=== PATIENT | male | born 1955 | race Caucasian/White ===

== ENCOUNTER 2017-09-05 10:17 | Emergency (ER) | payer OTHER ==
[2017-09-05 10:30] VITALS: PULSE 102; RESP 18
--- NOTE | 2017-09-05 10:30 | ED ---
General Adult HPI - General Chief complaint: Skin/Abscess/Foreign Body Stated complaint: swelling Time Seen by Provider: 09/05/17 10:24 Source: patient, RN notes reviewed, old records reviewed Mode of arrival: ambulatory Limitations: no limitations - History of Present Illness Initial comments: This is a 61-year-old male the ER today. The patient is today for evaluation regards to gluteal rectal abscess. Draining pus. Patient missed a fever diaphoresis not feeling well, patient does feel weak. He states symptoms happened and began basically last 2 days. Noticed it. Pain maybe a little bit longer than that, they did notice drainage and pus from the area yesterday. Patient presents today for evaluation regarding issue. Patient has no known history of diabetes - Related Data Home Medications Medication Instructions Recorded Confirmed Amoxic-Pot Clav 875-125Mg 1 tab PO Q12HR 09/05/17 09/05/17 [Augmentin 875-125] Aspirin 81 mg PO DAILY 09/05/17 09/05/17 [id number] [id number] 1 each PO Q6HR PRN 09/05/17 09/05/17 [Excedrin] Ibuprofen [Advil] 400 mg PO Q6HR PRN 09/05/17 09/05/17 Allergies Allergy/AdvReac Type Severity Reaction Status Date / Time No Known Allergies Allergy Unverified 09/05/17 10:33 Review of Systems ROS Statement: Those systems with pertinent positive or pertinent negative responses have been documented in the HPI. ROS Other: All systems not noted in ROS Statement are negative. Past Medical History Past Medical History: No Reported History History of Any Multi-Drug Resistant Organisms: None Reported Past Surgical History: No Surgical Hx Reported Past Psychological History: No Psychological Hx Reported Smoking Status: Current every day smoker Past Alcohol Use History: None Reported Past Drug Use History: None Reported General Exam Limitations: no limitations General appearance: alert, in no apparent distress Head exam: Present: atraumatic, normocephalic, normal inspection Eye exam: Present: normal appearance, PERRL, EOMI. Absent: scleral icterus, conjunctival injection, periorbital swelling ENT exam: Present: normal exam, mucous membranes moist Neck exam: Present: normal inspection. Absent: tenderness, meningismus, lymphadenopathy Respiratory exam: Present: normal lung sounds bilaterally. Absent: respiratory distress, wheezes, rales, rhonchi, stridor Cardiovascular Exam: Present: normal rhythm, tachycardia, normal heart sounds. Absent: systolic murmur, diastolic murmur, rubs, gallop, clicks GI/Abdominal exam: Present: soft, normal bowel sounds. Absent: distended, tenderness, guarding, rebound, rigid Rectal exam: Present: tenderness, other (crepitus, abscess-draining pus, ) Extremities exam: Present: normal inspection, full ROM, normal capillary refill. Absent: tenderness, pedal edema, joint swelling, calf tenderness Back exam: Present: normal inspection Neurological exam: Present: alert, oriented X3, CN II-XII intact Psychiatric exam: Present: normal affect, normal mood Skin exam: Present: warm, dry, intact, normal color. Absent: rash Course Vital Signs 09/05/17 10:19 Temperature 98.6 F Pulse Rate 102 H Respiratory 18 Rate Blood Pressure 108/43 O2 Sat by Pulse 99 Oximetry Medical Decision Making - Lab Data Result diagrams: 09/05/17 11:19 09/05/17 11:19 Lab Results 09/05/17 09/05/17 09/05/17 Range/Units 11:19 11:19 11:19 WBC 21.9 H (3.8-10.6) k/uL RBC 4.70 (4.30-5.90) m/uL Hgb 14.4 (13.0-17.5) gm/dL Hct 42.4 (39.0-53.0) % MCV 90.4 (80.0-100.0) fL MCH 30.6 (25.0-35.0) pg MCHC 33.9 (31.0-37.0) g/dL RDW 13.4 (11.5-15.5) % Plt Count 260 (150-450) k/uL Sodium 136 L (137-145) mmol/L Potassium 3.9 (3.5-5.1) mmol/L Chloride 105 (98-107) mmol/L Carbon Dioxide 19 L (22-30) mmol/L Anion Gap 12 mmol/L BUN 23 H (9-20) mg/dL Creatinine 1.11 (0.66-1.25) mg/dL Est GFR (CKD-EPI)AfAm 83 (>60 ml/min/1.73 sqM) Est GFR (CKD-EPI)NonAf 72 (>60 ml/min/1.73 sqM) Glucose 119 H (74-99) mg/dL Plasma Lactic Acid Russ (0.7-2.0) mmol/L Calcium 8.5 (8.4-10.2) mg/dL Phosphorus 3.7 (2.5-4.5) mg/dL Magnesium 1.9 (1.6-2.3) mg/dL Total Bilirubin 0.7 (0.2-1.3) mg/dL AST 27 (17-59) U/L ALT 57 (21-72) U/L Alkaline Phosphatase 77 (38-126) U/L Total Creatine Kinase 135 (55-170) U/L CK-MB (CK-2) 1.3 (0.0-2.4) ng/mL CK-MB (CK-2) Rel Index 1.0 Troponin I <0.012 (0.000-0.034) ng/mL Total Protein 5.4 L (6.3-8.2) g/dL Albumin 2.7 L (3.5-5.0) g/dL 09/05/17 Range/Units 11:19 WBC (3.8-10.6) k/uL RBC (4.30-5.90) m/uL Hgb (13.0-17.5) gm/dL Hct (39.0-53.0) % MCV (80.0-100.0) fL MCH (25.0-35.0) pg MCHC (31.0-37.0) g/dL RDW (11.5-15.5) % Plt Count (150-450) k/uL Sodium (137-145) mmol/L Potassium (3.5-5.1) mmol/L Chloride (98-107) mmol/L Carbon Dioxide (22-30) mmol/L Anion Gap mmol/L BUN (9-20) mg/dL Creatinine (0.66-1.25) mg/dL Est GFR (CKD-EPI)AfAm (>60 ml/min/1.73 sqM) Est GFR (CKD-EPI)NonAf (>60 ml/min/1.73 sqM) Glucose (74-99) mg/dL Plasma Lactic Acid Russ 2.0 (0.7-2.0) mmol/L Calcium (8.4-10.2) mg/dL Phosphorus (2.5-4.5) mg/dL Magnesium (1.6-2.3) mg/dL Total Bilirubin (0.2-1.3) mg/dL AST (17-59) U/L ALT (21-72) U/L Alkaline Phosphatase (38-126) U/L Total Creatine Kinase (55-170) U/L CK-MB (CK-2) (0.0-2.4) ng/mL CK-MB (CK-2) Rel Index Troponin I (0.000-0.034) ng/mL Total Protein (6.3-8.2) g/dL Albumin (3.5-5.0) g/dL Critical Care Time Critical Care Time: Yes Total Critical Care Time: 31 Disposition Clinical Impression: Necrotizing fasciitis of pelvic region and thigh, Fever Disposition: OTHER INSTITUTION NOT DEFINED Condition: Serious Is patient prescribed a controlled substance at d/c from ED?: No Referrals: Chivo Villeda MD [Primary Care Provider] - 1-2 days - Out of Hospital Transfer - Req. Specs Out of Hospital Transfer - Requested Specifics: Other Emergency Center ([facility])
[2017-09-05] MEDS ORDERED: SODIUM CHLORIDE 0.9% 1,000 ML IV STA ×2 (10:43)
[2017-09-05] MEDS ORDERED: VANCOMYCIN IV PER PHARMACY 1 EACH MISC MISCELLANE PRN (10:43)
[2017-09-05] MEDS ORDERED: PIPERACILLIN-TAZOBACTAM 3.375 GM in DEXTROSE/WATER 1 50ML.BAG IVPB STA (10:43)
[2017-09-05] MEDS ORDERED: SODIUM CHLORIDE 0.9% 500 ML IV STA (10:43)
[2017-09-05] MEDS ORDERED: KETOROLAC 30 MG/ML 1 ML VIAL IVP STA (10:45)
[2017-09-05] MEDS ORDERED: ACETAMINOPHEN IV (For NPO) 1,000 MG in EMPTY BAG 1 BAG IVPB STA (10:46)
[2017-09-05] MEDS ORDERED: VANCOMYCIN 2,000 MG in SODIUM CHLORIDE 0.9% 500 ML IVPB STA (10:49)
[2017-09-05] MEDS: MORPHINE SULFATE 2 MG/ML SYRINGE IV STA ×2 (11:35→13:23)
[2017-09-05 11:47] LABS: Albumin 2.7 g/dL (3.5-5.0); Calcium 8.5 mg/dL (8.4-10.2); Magnesium 1.9 mg/dL (1.6-2.3); Phosphorus 3.7 mg/dL (2.5-4.5); Potassium 3.9 mmol/L (3.5-5.1); Total Bilirubin 0.7 mg/dL (0.2-1.3); Total Protein 5.4 g/dL (6.3-8.2)
[2017-09-05 11:55] LABS: Creatine Kinase 135 U/L (55-170)
[2017-09-05 11:58] LABS: HCT 42.4 % (39.0-53.0); HGB 14.4 gm/dL (13.0-17.5); MCH 30.6 pg (25.0-35.0); MCHC 33.9 g/dL (31.0-37.0); MCV 90.4 fL (80.0-100.0); Mean Platelet Volume 7.7; Platelet Count 260 k/uL (150-450); RDW 13.4 % (11.5-15.5); WBC 21.9 k/uL (3.8-10.6)
[2017-09-05 12:08] LABS: Creatine Kinase MB 1.3 ng/mL (0.0-2.4); Troponin I <0.012 ng/mL (0.000-0.034)
--- NOTE | 2017-09-05 12:16 | CT ---
EXAMINATION TYPE: CT pelvis w con DATE OF EXAM: 09/05/2017 COMPARISON: NONE HISTORY: Rectal abscess, swelling to buttocks and scrotum CT DLP: 1873 mGycm Automated exposure control for dose reduction was used. CONTRAST: Performed with IV Contrast, patient injected with 100 mL of Isovue 300. FINDINGS: There is moderate to severe diffuse fat stranding or fluid throughout the gluteal region with subcuta neous air also identified bilaterally extending into the bilateral scrotum and left inguinal canal. N ecrotizing fasciitis cannot be excluded. No well-formed fluid collection or drainable abscess is seen . There is extension to the left perianal fat with mild presacral fat stranding inferiorly seen near axial image 58. There is extension into the left obturator externus and internus muscle same axial i mage 58. No suspicious bowel dilatation is seen. No concerning focal pelvic fluid collection is identified. Th ere is mild to moderate calcified plaque of aorta extending into iliac branch vessels. There is multi level vacuum disc phenomenon and moderate spurring in the lumbar spine. There is moderate to severe d isc space narrowing with sclerosis L4-L5 level. There is facet arthropathy lower lumbar levels. No lorenz spicious pelvic adenopathy is present. IMPRESSION: LONG AREA OF FAT STRANDING AND AIR THROUGHOUT THE MID TO INFERIOR GLUTEAL SOFT TISSUE BILATERALLY, TH ERE IS EXTENSION INTO THE BILATERAL SUPERIOR SCROTUM WELL LEFT INGUINAL EXTENSION AND EXTENSION TO THE LEFT PERIANAL REGION. NECROTIZING FASCIITIS CANNOT BE EXCLUDED. URGENT SURGICAL REFERRAL ADVI SED. CASE DISCUSSED WITH ORDERING ER PHYSICIAN VIA TELEPHONE AT TIME OF DICTATION.
[2017-09-05 12:29] LABS: INR 1.2 (<1.2); Partial Thromboplastin Time 23.9 sec (22.0-30.0); Prothrombin Time 11.8 sec (9.0-12.0)
[2017-09-05 12:51] VITALS: BP 139/59; TEMP 98.1
[2017-09-05 13:06] LABS: Band Neutrophils % 16 %; Lymphocytes # (M) 0.66 k/uL (1.0-4.8); Metamyelocytes # (M) 0.22 k/uL (0); Metamyelocytes % 1 %; Monocytes # (M) 0.44 k/uL (0-1.0); Myelocytes # (M) 0.22 k/uL (0); Myelocytes % 1 %; Neutrophils % (M) 78 %; Nucleated Red Blood Cells 0 /100 WBC (0-0); Total Cells Counted 200
[2017-09-05 13:07] LABS: Toxic Vacuolation Present
[2017-09-05] MEDS ORDERED: VANCOMYCIN 2,000 MG in SODIUM CHLORIDE 0.9% 500 ML IVPB SCH (21:00)
== END 2017-09-05 13:32 | disposition other institution (70) ==
LOC: EC 10:17
DX: M72.6 Necrotizing fasciitis (principal); F17.200 Nicotine dependence, unspecified, uncomplicated; Z79.82 Long term (current) use of aspirin
CPT/HCPCS: 36415; 80053; 82550; 82553; 83605; 83735; 84100; 84484; 85025; 85610; 85730; 87040; 72193; 99291; 96365; 96368; 96375 ×3; 96376; 96361; J3370; J1885; J2270; J2543; J0131; Q9967